=== PATIENT | female | born 1995 | race Caucasian/White ===

== ENCOUNTER 2024-02-13 10:53 | Emergency (ER) | payer MEDICAID, OTHER ==
[~2024-02-13] VITALS: Ht 167.6 cm; Wt 128.2 kg
[2024-02-13] MEDS ORDERED: BENZ200C70 PO (15:45)
[2024-02-13 15:52] VITALS: BP 133/67; TEMP 98.9; O2SAT 98
== END 2024-02-13 15:53 | disposition home or self-care (01) ==
LOC: M ED 10:53
DX: J21.1 Acute bronchiolitis due to human metapneumovirus (principal); Z79.2 Long term (current) use of antibiotics